=== PATIENT | female | born 1985 | race Caucasian/White ===

== ENCOUNTER 2017-04-12 01:01 | Emergency (ER) | payer OTHER ==
[~2017-04-12] VITALS: Ht 165.1 cm; Wt 64.9 kg
[2017-04-12 01:07] VITALS: BP 132/89; TEMP 98
[2017-04-12] MEDS ORDERED: NORCO 325 MG-7.1 TAB PO (01:30)
[2017-04-12 02:22] VITALS: PULSE 72
== END 2017-04-12 02:24 | disposition home or self-care (01) ==
LOC: COL.ER 01:01
DX: S39.012A Strain of muscle, fascia and tendon of lower back, initial encounter (principal); F17.210 Nicotine dependence, cigarettes, uncomplicated; Z98.818 Other dental procedure status; Z96.22 Myringotomy tube(s) status; X50.0XXA Overexertion from strenuous movement or load, initial encounter; Y92.69 Other specified industrial and construction area as the place of occurrence of the external cause; Y99.0 Civilian activity done for income or pay
CPT/HCPCS: J2360

== ENCOUNTER 2017-04-28 08:01 | Outpatient (RCR) | payer OTHER ==
[~2017-04-28 08:01] MED LIST: NORCO 325 MG-7.1 TAB PO
== END 2017-06-14 15:33 | disposition still patient (30) ==
LOC: WSOH 08:01
DX: S39.012A Strain of muscle, fascia and tendon of lower back, initial encounter (principal); M62.830 Muscle spasm of back; X50.0XXA Overexertion from strenuous movement or load, initial encounter; Y99.0 Civilian activity done for income or pay; Z79.891 Long term (current) use of opiate analgesic